=== PATIENT | male | born 2005 | race Caucasian/White ===

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

== ENCOUNTER 2024-06-10 11:01 | Emergency (ER) | payer OTHER, SELFPAY ==
[2024-06-10 11:04] VITALS: BP 146/73; PULSE 62; RESP 16; TEMP 36.7; O2SAT 99; BMI 27.1
--- NOTE | 2024-06-10 11:08 | DI.RAD.S_ITS ---
PROCEDURE: XR ANKLE LT MIN 3V INDICATIONS: trip and pain, felt pop TECHNIQUE: 3 views of the ankle were acquired. COMPARISON: [facility], CR, XR ANKLE LT MIN 3V, 01/10/2021, 14:51. FINDINGS: Bones: No fractures or dislocations. Ankle mortise is normally aligned. No suspicious bony lesions. Soft tissues: No tibiotalar joint effusion. Achilles tendon appears normal. IMPRESSION: No acute bony abnormality or significant effusion. Dictated by: Farooq Florentino M.D. on 06/10/2024 at 12:01 Approved by: Farooq Florentino M.D. on 06/10/2024 at 12:02
--- NOTE | 2024-06-10 12:53 | ED.LOWEXIN ---
HPI - Extremity Injury (Lower) <Carole Partida PA-C - Last Filed: 06/10/24 13:02> General Chief Complaint: Extremity Injury, Lower Stated Complaint: L ankle injury Time Seen by Provider: 06/10/24 11:26 Source: patient Mode of arrival: Ambulatory History of Present Illness HPI Narrative: 19-year-old male presents to the ED status post a left ankle injury sustained just prior to arrival. Patient tripped on his left ankle, twisting it. Patient states he is able to walk with a limp. Patient took 2 Advil after the injury. Patient notes some intermittent mild numbness. No tingling, weakness. Related Data Previous Rx's Medication Instructions Recorded hydroxyzine HCl 10 mg tablet 10 mg PO TID PRN anxiety #30 tabs 08/31/20 amoxicillin 875 mg-potassium 1 tab PO BID #20 tabs 09/21/22 clavulanate 125 mg tablet Allergies Allergy/AdvReac Type Severity Reaction Status Date / Time No Known Drug Allergies Allergy Verified 06/10/24 11:07 Review of Systems <Carole Partida PA-C - Last Filed: 06/10/24 13:02> Constitutional Constitutional: Denies chills, Denies fatigue, Denies fever(s), Denies frequent falls, Denies lethargy and Denies weakness Eyes Eyes: Denies change in vision, Denies eye discharge, Denies irritation and Denies loss of vision ENT Ears, Nose, Mouth, and Throat: Denies change in voice, Denies dizziness, Denies neck pain, Denies sore throat and Denies throat swelling Cardiovascular Cardiovascular: Denies chest pain, Denies irregular heart rhythm, Denies lightheadedness, Denies palpitations, Denies dyspnea, Denies dyspnea on exertion and Denies orthopnea Respiratory Respiratory: Denies cough, Denies dyspnea, Denies dyspnea on exertion and Denies wheezing Gastrointestinal Gastrointestinal: Denies abdominal pain, Denies change in bowel habits, Denies diarrhea, Denies nausea and Denies vomiting Musculoskeletal Musculoskeletal: Denies neck pain and Denies numbness Comments: Left ankle swelling, pain Integumentary/Breasts Skin/Breast: Denies pruritus, Denies erythema, Denies rash and Denies wounds Neurologic Neurologic: Denies behavioral changes, Denies confusion, Denies dizziness, Denies frequent falls, Denies loss of vision, Denies numbness and Denies weakness Psychiatric Psychiatric: Denies anxiety, Denies behavioral changes, Denies confusion, Denies depression, Denies homicidal ideation and Denies suicidal ideation Endocrine Endocrine: Denies fatigue, Denies flushing and Denies palpitations Hematologic/Lymphatic Hematologic/Lymphatic: Denies easy bruising Allergic/Immunologic Allergic/Immunologic: Denies urticaria, Denies throat swelling and Denies wheezing Patient History <Carole Partida PA-C - Last Filed: 06/10/24 13:02> Medical History No significant medical problems Social History Smoking Status: Current every day smoker alcohol intake: never substance use type: does not use Smoking Status: Current every day smoker tobacco type: vaping alcohol intake frequency: 0-2 drinks per day Substance Use Type: does not use Exam <Carole Partida PA-C - Last Filed: 06/10/24 13:02> Narrative Exam Narrative: Const General:?cooperative, healthy appearing and comfortable [facility] Head:?normal to inspection Ears:?hearing grossly normal bilaterally Nose:?external nose normal Face and sinus:?normal facial exam and sinuses nontender Mouth:?oral mucosae normal Throat:?posterior oropharynx normal Eyes General:?appearance normal, both eyes and all related structures Neck Neck:?normal visual inspection and no lymphadenopathy noted Resp Effort & Inspection:?normal respiratory effort Auscultation:?clear to auscultation bilaterally Cardio Rate:?regular rate Rhythm:?regular rhythm Musculoskeletal There is some tenderness to palpation and mild swelling of the left ankle. No bruising. Strength and sensation is intact. Patient is neurovascularly intact. Patient is walking with a limp due to the pain. Neuro General:?patient alert, patient awake and patient oriented x3 Initial Vital Signs Initial Vital Signs: Vital Signs Temperature 98.0 F 06/10/24 11:04 Pulse Rate 62 06/10/24 11:04 Respiratory Rate 16 06/10/24 11:04 Blood Pressure 146/73 H 06/10/24 11:04 Pulse Oximetry 99 06/10/24 11:04 Oxygen Delivery Method Room Air 06/10/24 11:04 <Juliette Castaneda DO - Last Filed: 06/11/24 07:46> Initial Vital Signs Initial Vital Signs: Vital Signs Temperature 98.0 F 06/10/24 11:04 Pulse Rate 62 06/10/24 11:04 Respiratory Rate 16 06/10/24 11:04 Blood Pressure 146/73 H 06/10/24 11:04 Pulse Oximetry 99 06/10/24 11:04 Oxygen Delivery Method Room Air 06/10/24 11:04 Course <Carole Partida PA-C - Last Filed: 06/10/24 13:02> Orders Ordered: ED Orders 06/10/24 11:08 XR ankle LT min 3V Stat Vital Signs Vital signs: Vital Signs - 8 hr 06/10/24 11:04 Temperature 98.0 F Pulse Rate 62 Respiratory Rate 16 Blood Pressure 146/73 H Pulse Oximetry 99 Oxygen Delivery Method Room Air <Juliette Castaneda DO - Last Filed: 06/11/24 07:46> Orders Ordered: ED Orders 06/10/24 11:08 XR ankle LT min 3V Stat Vital Signs Vital signs: Vital Signs - 8 hr 06/10/24 11:04 Temperature 98.0 F Pulse Rate 62 Respiratory Rate 16 Blood Pressure 146/73 H Pulse Oximetry 99 Oxygen Delivery Method Room Air MDM - Extremity Injury (Lower) <Carole Partdia PA-C - Last Filed: 06/10/24 13:02> MDM Narrative Medical decision making narrative: 19-year-old male presents to the ED status post a left ankle injury sustained just prior to arrival. Concern for fracture/dislocation versus musculoskeletal sprain/strain versus other. X-ray was obtained without acute findings. Discussed findings with patient, recommend RICE. Recommend ibuprofen. Patient's ankle was Ken wrapped and crutches provided for ambulation. Recommend follow-up with PCP. ED return precautions discussed with patient. Patient verbalized understanding. Medical records reviewed: Yes Discharge Plan Departure Patient Disposition: Home Clinical Impression: Ankle sprain Qualifiers: Encounter type: initial encounter Involved ligament of ankle: unspecified ligament Laterality: left Qualified Code(s): S93.402A - Sprain of unspecified ligament of left ankle, initial encounter Instructions: DI for Ankle Sprain Activity Restrictions/Additional Instructions: You were evaluated in the ED today for an ankle injury. Your x-ray shows no fractures or dislocations. It appears his symptoms are due to a musculoskeletal sprain/strain of the ankle. Your ankle has been Ken wrapped and you have been provided crutches to get around. You may take 600-800 mg of ibuprofen every 8 hours with food for the pain and swelling. You may apply ice for the 1st 24 hours, followed by heat. Please follow-up with your PCP as soon as possible. Return to the ED if you note worsening symptoms, numbness, tingling, weakness. Prescriptions: No Action amoxicillin-pot clavulanate 875-125 mg tablet 1 tab PO BID Qty: 20 0RF hydroxyzine HCl 10 mg tablet 10 mg PO TID PRN (Reason: anxiety) Qty: 30 0RF Rx Instructions: Please schedule follow up Referrals: Patti Wilkinson DO [Primary Care Provider] - Stand Alone Forms: Patient Portal/API, Work Release Note ED Sign-out <Juliette Castaneda DO - Last Filed: 06/11/24 07:46> Cosign ED Attending Willie Attestation: I was immediately available in the department for consultation.
== END 2024-06-10 13:07 | disposition home or self-care (01) ==
PROVIDERS: Emergency Provider Student in an Organized Health Care Education/Training Program; PCP Family Medicine
DX: S93.402A Sprain of unspecified ligament of left ankle, initial encounter (principal); W01.0XXA Fall on same level from slipping, tripping and stumbling without subsequent striking against object, initial encounter
CPT/HCPCS: 73610; 99281; 99283

== ENCOUNTER 2024-11-14 10:44 | Emergency (ER) | payer BC, SELFPAY ==
[2024-11-14 10:55] VITALS: BP 126/75; PULSE 104; RESP 20; TEMP 37.1; O2SAT 97; BMI 27.1
--- NOTE | 2024-11-14 11:20 | ED.NAVMDI ---
HPI - Nausea/Vomiting/Diarrhea <Tootie Augustin PA-C - Last Filed: 11/14/24 14:28> General Chief complaint: Nausea/Vomiting/Diarrhea Stated complaint: Vomiting, headaches,Fever Time Seen by Provider: 11/14/24 11:12 Source: patient Mode of arrival: EMS History of Present Illness HPI Narrative: 19-year-old male presents with symptoms that began a couple of days ago he endorsed having a cough, apparently his tested positive for influenza A and then his symptoms began. Today he also endorses a sore throat, runny nose and a fever taken at home of 102. He also vomited at 4:00 a.m. this morning with some food product and had some dry heaving at 9:30 a.m. this morning. Took ibuprofen 800 mg at 8:00 a.m. this morning he has had no Tylenol. He has a history of migraine in his currently having a headache which he describes as bandlike, 9/10, with sensitivity to light, body aches, joint pains. He has not currently vaccinated this season, history also significant for anxiety and previous COVID in September 2022. No other treatment tried. He has no history of any airspace disease or pneumonia. All other systems are reviewed and are negative. No known allergies to medications. Related Data Previous Rx's Medication Instructions Recorded hydroxyzine HCl 10 mg tablet 10 mg PO TID PRN anxiety #30 tabs 08/31/20 amoxicillin 875 mg-potassium 1 tab PO BID #20 tabs 09/21/22 clavulanate 125 mg tablet ondansetron 4 mg disintegrating 4 mg PO Q8H #20 tabs 11/14/24 tablet oseltamivir 75 mg capsule (Tamiflu) 75 mg PO Q12H 5 days #10 caps 11/14/24 Allergies Allergy/AdvReac Type Severity Reaction Status Date / Time No Known Drug Allergies Allergy Verified 06/10/24 11:07 Review of Systems <Tootie Augustin PA-C - Last Filed: 11/14/24 14:28> Review of Systems Narrative: All other systems reviewed and are negative. Patient History <Tootie Augustin PA-C - Last Filed: 11/14/24 14:28> Medical History (Updated 11/14/24 @ 13:09 by Tootie Augustin PA-C) No significant medical problems Social History Smoking Status: Current every day smoker alcohol intake: never substance use type: does not use Smoking Status: Current every day smoker tobacco type: vaping alcohol intake frequency: 0-2 drinks per day Exam <Tootie Augustin PA-C - Last Filed: 11/14/24 14:28> Initial Vital Signs Initial Vital Signs: Vital Signs Temperature 98.8 F 11/14/24 10:55 Pulse Rate 104 H 11/14/24 10:55 Respiratory Rate 20 11/14/24 10:55 Blood Pressure 126/75 11/14/24 10:55 Pulse Oximetry 97 11/14/24 10:55 Oxygen Delivery Method Room Air 11/14/24 10:55 Vital signs reviewed and are normal initial heart rate is 104, repeat it was now 98. Const General: cooperative, comfortable, well developed and No acute distress HENMT Head: normal to inspection and normocephalic Ears: hearing grossly normal bilaterally, external ears normal, TM's normal bilaterally, EAC's normal, mastoids normal and no periauricular adenopathy Nose: external nose normal, mucous membranes and turbinates abnormal (Swelling of turbinates right greater than left, no obstruction, no bleeding) and nasal discharge (Clear bilaterally no purulence) Face and sinus: normal facial exam, sinuses nontender and face symmetric Mouth: oral mucosae normal, lip normal, tongue normal and oropharynx normal Teeth and gingiva: gingiva normal Throat: posterior oropharynx normal, tonsils normal and uvula midline HENMT Other: No hoarseness Eyes General: Yes appearance normal, both eyes and all related structures Neck Neck: normal visual inspection, full ROM, no meningeal signs and supple Lymphatic: No lymphadenopathy Chest Chest: normal inspection of the chest Resp Effort & Inspection: normal respiratory effort and able to speak in complete sentences Auscultation: clear to auscultation bilaterally, no rales, no rhonchi and no wheezes Cardio Rate: regular rate Rhythm: regular rhythm GI Palpation: soft and no hepatosplenomegaly Skin General: no rashes or lesions noted <Juliette Castaneda DO - Last Filed: 11/15/24 07:31> Initial Vital Signs Initial Vital Signs: Vital Signs Temperature 98.8 F 11/14/24 10:55 Pulse Rate 104 H 11/14/24 10:55 Respiratory Rate 20 11/14/24 10:55 Blood Pressure 126/75 11/14/24 10:55 Pulse Oximetry 97 11/14/24 10:55 Oxygen Delivery Method Room Air 11/14/24 10:55 Course <Tootie Augutsin PA-C - Last Filed: 11/14/24 14:28> Orders Ordered: Discontinued Medications Acetaminophen (Acetaminophen 325 Mg Tablet) 975 mg PO NOW ONE Stop: 11/14/24 11:35 Last Admin: 11/14/24 11:59 Dose: 975 mg Documented By: KATTY Ondansetron HCl (Ondansetron 4 Mg Odt) 4 mg SL NOW ONE Stop: 11/14/24 11:21 Last Admin: 11/14/24 11:31 Dose: 4 mg Documented By: KATTY Vital Signs Vital signs: Vital Signs - 8 hr 11/14/24 10:55 11/14/24 13:34 Temperature 98.8 F Pulse Rate 104 H 70 Respiratory Rate 20 14 Blood Pressure 126/75 113/51 L Pulse Oximetry 97 97 Oxygen Delivery Method Room Air Room Air <Juliette Castaneda DO - Last Filed: 11/15/24 07:31> Orders Ordered: Discontinued Medications Acetaminophen (Acetaminophen 325 Mg Tablet) 975 mg PO NOW ONE Stop: 11/14/24 11:35 Last Admin: 11/14/24 11:59 Dose: 975 mg Documented By: KATTY Ondansetron HCl (Ondansetron 4 Mg Odt) 4 mg SL NOW ONE Stop: 11/14/24 11:21 Last Admin: 11/14/24 11:31 Dose: 4 mg Documented By: KATTY Vital Signs Vital signs: Vital Signs - 8 hr 11/14/24 10:55 11/14/24 13:34 Temperature 98.8 F Pulse Rate 104 H 70 Respiratory Rate 20 14 Blood Pressure 126/75 113/51 L Pulse Oximetry 97 97 Oxygen Delivery Method Room Air Room Air MDM - Nausea/Vomiting/Diarrhea <Tootie Augustin PA-C - Last Filed: 11/14/24 14:28> Lab Data Lab results narrative: Quad respiratory panel is positive for influenza A. Negative for COVID or RSV. Labs: Lab Results 11/14/24 Range/Units 11:35 SARS-CoV-2 (PCR) Negative (Negative) Influenza A (RT-PCR) Flu a positive H (NEGATIVE) Influenza B (RT-PCR) Flu b negative (NEGATIVE) RSV (PCR) Negative (Negative) MDM Narrative Medical decision making narrative: No clinical findings on examination to warrant a chest radiograph, he is currently afebrile. Quad respiratory panel shows, no other findings on examination to suggest an acute bacterial infection. He has no history of any airspace disease. Discussed starting Tamiflu as he is somewhat within the treatment window just on the border of 72 hours and discussed side effects with this medication. I have also prescribed additional Zofran, we discussed clear fluids, popsicles, use of Tylenol and or ibuprofen for fever or pain. He was given a note releasing him from work, discussed also avoiding anyone with immunocompromise the very young with a very old. Please seek medical attention if anything changes or worsens or you develop any new worrisome symptoms. Red flag warning signs reviewed in great detail. <Juliette Castaneda, DO - Last Filed: 11/15/24 07:31> Lab Data Labs: Lab Results 11/14/24 Range/Units 11:35 SARS-CoV-2 (PCR) Negative (Negative) Influenza A (RT-PCR) Flu a positive H (NEGATIVE) Influenza B (RT-PCR) Flu b negative (NEGATIVE) RSV (PCR) Negative (Negative) Discharge Plan Departure Patient Disposition: Home Clinical Impression: Influenza A Instructions: DI for Influenza -- Adult Activity Restrictions/Additional Instructions: I have prescribed an antiviral called Tamiflu it may shorten the duration of symptoms by about a day you can talk to the pharmacist in more detail about this risks benefit, I have prescribed you additional antinausea medication that maybe helpful. Please do sips of clears for the next 24 hours this includes popsicles, water, sprite you do not need to eat anything you just need to urinate and rest, you did receive Tylenol here you can take this every 4 hours for fever or pain, and your ibuprofen as every 8 hours with food which would be like some crackers or something just so you do not have an empty stomach with that. Please do follow up with your primary care provider symptoms persist if you worsen or have any new worrisome symptoms please do not hesitate to return here. Prescriptions: New oseltamivir [Tamiflu] 75 mg capsule 75 mg PO Q12H 5 Days Qty: 10 0RF ondansetron 4 mg tablet,disintegrating 4 mg PO Q8H Qty: 20 0RF No Action amoxicillin-pot clavulanate 875-125 mg tablet 1 tab PO BID Qty: 20 0RF hydroxyzine HCl 10 mg tablet 10 mg PO TID PRN (Reason: anxiety) Qty: 30 0RF Rx Instructions: Please schedule follow up Referrals: Patti Wilkinson DO [Primary Care Provider] - Stand Alone Forms: Patient Portal/API/Survey, Work Release Note ED Sign-out <Juliette Castaneda DO - Last Filed: 11/15/24 07:31> Cosign ED Attending Willie Attestation: I was immediately available in the department for consultation.
[2024-11-14] MEDS: ONDANSETRON 4 MG ODT SL (11:31)
[2024-11-14] MEDS: ACETAMINOPHEN 325 MG TABLET 975 MG PO (11:59)
[2024-11-14 12:24] LABS: Influenza A - CEPHEID Flu A POSITIVE (NEGATIVE); Influenza B - CEPHEID Flu B NEGATIVE (NEGATIVE); Respiratory Syncytial Virus Negative (Negative)
[2024-11-14 13:07] LABS: COVID-19 CEPHEID 4-PLEX PCR Negative (Negative)
[2024-11-14 13:34] VITALS: BP 113/51; PULSE 70; RESP 14; O2SAT 97
== END 2024-11-14 13:36 | disposition home or self-care (01) ==
PROVIDERS: Emergency Provider Physician Assistant Medical; PCP Family Medicine
DX: J10.1 Influenza due to other identified influenza virus with other respiratory manifestations (principal)
CPT/HCPCS: 0241U; 99283

== ENCOUNTER 2025-06-17 12:05 | Emergency (ER) | payer BC, SELFPAY ==
[2025-06-17 12:17] VITALS: BP 132/74; PULSE 72; RESP 18; TEMP 36.8; O2SAT 98; BMI 30.4
--- NOTE | 2025-06-17 12:18 | ED_ITS ---
<Statement entered by Brandin Burdick, DO - 06/17/25 17:44> Co-sign statement: I was available for consultation during this patient's emergency department visit. This chart is being signed by myself for administrative purposes only. I do not have direct contact with this patient during this visit. They were seen independently by the APC. HPI - General Adult General Chief complaint: Back Pain/Injury Stated complaint: pain in spine and down right leg Time Seen by Provider: 06/17/25 12:12 History of Present Illness HPI narrative: 20-year-old male presents to the ED with 4 days of mid and lower back pain. Patient states that he had a prior episode of back pain about a year and a half ago, was advised ibuprofen and stretches. Patient states that he is successfully manage his back pain thus far. However, patient slept on the floor 4 days ago, during which he believes he might have tweaked his back. Patient is complaining of midline back pain from the thoracic through lumbar spine. Patient states that his back pain always radiates down the back of his right leg, which has not changed this time around either. No urinary changes. No urinary hesitancy, saddle paresthesias, numbness, tingling, weakness. No fever, chills. Patient has not taken any pain medications since he does not wish to get addicted. Related Data Previous Rx's ?Medication ?Instructions ?Recorded hydroxyzine HCl 10 mg tablet 10 mg PO TID PRN anxiety #30 tabs 08/31/20 amoxicillin 875 mg-potassium 1 tab PO BID #20 tabs clavulanate 125 mg tablet ondansetron 4 mg disintegrating 4 mg PO Q8H #20 tabs 0 11/14/24 tablet cyclobenzaprine 10 mg tablet 10 mg PO TID PRN muscle s pasm #14 06/17/25 tabs Allergies Allergy/AdvReac Type Severity Reaction Status Date / Time No Known Drug Allergies Allergy Verified 06/17/25 12:17 Review of Systems Constitutional Constitutional: Denies chills, Denies fatigue, Denies fever(s), Denies frequent falls, Denies lethargy and Denies weakness Eyes Eyes: Denies change in vision, Denies eye discharge, Denies irritation and Denies loss of vision ENT Ears, Nose, Mouth, and Throat: Denies change in voice, Denies dizziness, Denies neck pain, Denies sore throat and Denies throat swelling Cardiovascular Cardiovascular: Denies chest pain, Denies irregular heart rhythm, Denies lightheadedness, Denies palpitations, Denies dyspnea, Denies dyspnea on exertion and Denies orthopnea Respiratory Respiratory: Denies cough, Denies dyspnea, Denies dyspnea on exertion and Denies wheezing Gastrointestinal Gastrointestinal: Denies abdominal pain, Denies change in bowel habits, Denies diarrhea, Denies nausea and Denies vomiting Musculoskeletal Musculoskeletal: Reports back pain, Denies neck pain and Denies numbness Integumentary/Breasts Skin/Breast: Denies pruritus, Denies erythema, Denies rash and Denies wounds Neurologic Neurologic: Denies behavioral changes, Denies confusion, Denies dizziness, Denies frequent falls, Denies loss of vision, Denies numbness and Denies weakness Psychiatric Psychiatric: Denies anxiety, Denies behavioral changes, Denies confusion, Denies depression, Denies homicidal ideation and Denies suicidal ideation Endocrine Endocrine: Denies fatigue, Denies flushing and Denies palpitations Hematologic/Lymphatic Hematologic/Lymphatic: Denies easy bruising Allergic/Immunologic Allergic/Immunologic: Denies urticaria, Denies throat swelling and Denies wheezing Patient History Medical History (Updated 06/17/25 @ 13:17 by Carole Partida PA-C) No significant medical problems Social History alcohol intake: never substance use type: does not use tobacco type: vaping alcohol intake frequency: 0-2 drinks per day Exam Narrative Exam Narrative: Const General:?cooperative, healthy appearing and comfortable [facility] Head:?normal to inspection Ears:?hearing grossly normal bilaterally Nose:?external nose normal Face and sinus:?normal facial exam and sinuses nontender Mouth:?oral mucosae normal Throat:?posterior oropharynx normal Eyes General:?appearance normal, both eyes and all related structures Neck Neck:?normal visual inspection and no lymphadenopathy noted Resp Effort & Inspection:?normal respiratory effort Auscultation:?clear to auscultation bilaterally Cardio Rate:?regular rate Rhythm:?regular rhythm Musculoskeletal There is midline tenderness to palpation of the thoracic and lumbar spine. No paraspinal tenderness to palpation. Strength and sensation is intact. Full range of motion. Neurovascularly intact. Neuro General:?patient alert, patient awake and patient oriented x3 Initial Vital Signs Initial Vital Signs: Vital Signs Temperature 98.3 F 06/17/25 12:17 Pulse Rate 72 06/17/25 12:17 Respiratory Rate 18 06/17/25 12:17 Blood Pressure 132/74 06/17/25 12:17 Pulse Oximetry 98 06/17/25 12:17 Oxygen Delivery Method Room Air 06/17/25 12:17 Course Orders Ordered: ED Orders 06/17/25 12:23 CT lumbar spine wo con Stat CT thoracic spine wo con Stat Discontinued Medications Acetaminophen (Acetaminophen 325 Mg Tablet) 975 mg PO NOW ONE Stop: 06/17/25 12:25 Last Admin: 06/17/25 12:32 Dose: 975 mg Cyclobenzaprine HCl (Cyclobenzaprine 10 Mg Tablet) 10 mg PO NOW ONE Stop: 06/17/25 12:26 Last Admin: 06/17/25 12:32 Dose: 10 mg Ketorolac Tromethamine (Ketorolac 30 Mg/Ml Vial) 30 mg IM NOW ONE Stop: 06/17/25 12:25 Last Admin: 06/17/25 12:31 Dose: 30 mg Vital Signs Vital signs: Vital Signs - 8 hr 06/17/25 12:17 06/17/25 13:32 Temperature 98.3 F 98.1 F Pulse Rate 72 80 Respiratory Rate 18 18 Blood Pressure 132/74 128/70 Pulse Oximetry 98 99 Oxygen Delivery Method Room Air Room Air Medical Decision Making MDM Narrative Medical decision making narrative: 20-year-old male presents to the ED with 4 days of mid and lower back pain. Given midline tenderness to palpation, will obtain imaging. Will give patient ketorolac, Tylenol, Flexeril. Will reassess. CT scans without acute findings. Patient's symptoms improved with medications. Prescribed Flexeril. Recommend continuing ibuprofen. Recommend follow-up with PCP and physical therapy. ED return precautions discussed with patient. Patient verbalized understanding. Medical records reviewed: Yes Discharge Plan Departure Patient Disposition: Home Clinical Impression: Back pain Qualifiers: Back pain location: low back pain Chronicity: chronic Back pain laterality: right Sciatica presence: with sciatica Sciatica laterality: sciatica of right side Qualified Code(s): M54.41 - Lumbago with sciatica, right side Instructions: DI for Back Pain With Sciatica Activity Restrictions/Additional Instructions: You were evaluated in the emergency department today for back pain. The CT scans were normal. It appears that you have a musculoskeletal sprain/strain of the back that is causing your symptoms. You were given an injection of ketorolac, Tylenol and Flexeril for pain relief. You are being prescribed a muscle relaxant that you may take for the next few days as needed. Please also continue taking 600 mg of ibuprofen every 8 hours with food for pain and inflammation. Ibuprofen and Tylenol are not narcotic medications and do not have addictive potential. They are therefore very safe to take as needed for aches and pains. Please follow-up with your primary care doctor as soon as possible for further evaluation and physical therapy referrals. Return to the ED if you have worsening symptoms, numbness, tingling, weakness, urinary difficulties. Prescriptions: New cyclobenzaprine 10 mg tablet 10 mg PO TID PRN (Reason: muscle spasm) Qty: 14 0RF No Action amoxicillin-pot clavulanate 875-125 mg tablet 1 tab PO BID Qty: 20 0RF hydroxyzine HCl 10 mg tablet 10 mg PO TID PRN (Reason: anxiety) Qty: 30 0RF Rx Instructions: Please schedule follow up ondansetron 4 mg tablet,disintegrating 4 mg PO Q8H Qty: 20 0RF Referrals: Patti Wilkinson DO [Primary Care Provider, Family Practice] Stand Alone Forms: Patient Portal/API, Work Release Note
--- NOTE | 2025-06-17 12:23 | DI.CT.S_ITS ---
PROCEDURE: CT LUMBAR SPINE WO CON INDICATIONS: back pain TECHNIQUE: Noncontrast 3 mm thick sections acquired from the T12 level to the sacrum. Sagittal and coronal reformats were constructed. For radiation dose reduction, the following was used: automated exposure control. COMPARISON: None. FINDINGS: Image quality: Excellent. Bones: There is normal bony alignment. No acute vertebral body compression fractures. No suspicious lytic or blastic bony lesions. No pars defects. T12-L1: Unremarkable. L1-L2: Unremarkable. L2-L3: Unremarkable. L3-L4: Unremarkable. L4-L5: Mild broad-based disc bulge without significant central canal stenosis . Mild left-sided neural foraminal narrowing is seen. L5-S1: Degenerative endplate changes and vacuum disc phenomenon is seen. Dorsal disc osteophyte complex formation and central to right-sided disc herniation/extrusion causing mild central canal stenosis, moderate to severe right-sided neural foraminal narrowing. Mild left-sided neural foraminal narrowing is also seen. Soft tissues: No retroperitoneal masses or hematomas. Visualized aorta is normal in caliber. IMPRESSION: 1. No acute lumbar spine fracture or dislocation. No suspicious bony lesions. No gross paraspinous soft tissue abnormalities. 2. Spondylitic changes at L4-5 and L5-S1 levels causing various degrees of central canal stenosis and bilateral neural foraminal narrowing as described above . Dictated by: Rajesh Raymond M.D. on 06/17/2025 at 13:05 Approved by: Rajesh Raymond M.D. on 06/17/2025 at 13:07
--- NOTE | 2025-06-17 12:23 | DI.CT.S_ITS ---
PROCEDURE: CT THORACIC SPINE WO CON INDICATIONS: back pain TECHNIQUE: Noncontrast 3 mm thick sections acquired through the region of interest in the thoracic spine. Sagittal and coronal reformats were then constructed. For radiation dose reduction, the following was used: automated exposure control. COMPARISON: None. FINDINGS: Image quality: Excellent. Bones: There is normal overall bony alignment. No acute vertebral body compression fractures. No suspicious sclerotic or lytic bony lesions. Central spinal canal is of normal overall caliber. Soft tissues: No paravertebral masses or hematomas. Visualized posteromedial lungs appear clear. IMPRESSION: No acute fracture or dislocation in thoracic spine. No significant spondylitic changes. Dictated by: Rajesh Raymond M.D. on 06/17/2025 at 13:07 Approved by: Rajesh Raymond M.D. on 06/17/2025 at 13:09
[2025-06-17] MEDS: KETOROLAC 30 MG/ML VIAL IM (12:31)
[2025-06-17] MEDS: ACETAMINOPHEN 325 MG TABLET 975 MG PO (12:32)
[2025-06-17] MEDS: CYCLOBENZAPRINE 10 MG TABLET PO (12:32)
[2025-06-17 13:32] VITALS: BP 128/70; PULSE 80; RESP 18; TEMP 36.7; O2SAT 99
== END 2025-06-17 13:33 | disposition home or self-care (01) ==
PROVIDERS: Emergency Provider Student in an Organized Health Care Education/Training Program; PCP Family Medicine
DX: M54.41 Lumbago with sciatica, right side (principal); M54.6 Pain in thoracic spine
CPT/HCPCS: 72128; 72131; 96372; 99284; J1885